=== PATIENT | male | born 1950 | race Two or more races ===

== ENCOUNTER → 2025-02-17 | Outpatient (CLI) | payer OTHER, SELFPAY ==
[2025-02-17 08:48] LABS: Glucose Estimated Average 128 mg/dL (80-131); Hemoglobin A1C 6.1 % Hgb (4.8-6.0)
[2025-02-17 08:54] LABS: Alanine Aminotransferase 16 U/L (10-49); Albumin, Serum 4.3 gm/dL (3.4-4.8); Albumin/Globulin Ratio 1.8 (1.2-2.2); Alkaline Phosphatase 68 U/L (46-116); Anion Gap 9 (7-16); Aspartate Amino Transferase 16 U/L (0-34); BUN/Creatinine Ratio 11 Ratio (12-20); Bilirubin,Total 0.7 mg/dL (0.3-1.2); Blood Urea Nitrogen 16 mg/dL (9-23); Calcium 9.2 mg/dL (8.3-10.6); Calcium (Corrected) 9.2 mg/dL (8.5-10.1); Carbon Dioxide 26.3 mMol/L (20.0-31.0); Cardiac Risk Estimate 6.1 RATIO (4.0-6.7); Chloride 107 mMol/L (98-107); Cholesterol 176 mg/dL (132-200); Creatinine (Component) 1.5 mg/dL (0.6-1.3); Free T4 (Free Thyroxine) 1.11 ng/dL (0.89-1.76); Globulin 2.4 gm/dL (2.3-3.5); Glucose 123 mg/dL (74-106); HDL Cholesterol 29 mg/dL (40-60); LDL Cholesterol,Calculated 87 mg/dL (0-130); Osmolality,Calculated 285 (275-295); Potassium 4.1 mMol/L (3.4-5.1); Sodium 142 mMol/L (136-145); Thyroid Stimulating Hormone 2.32 uIU/mL (0.55-4.78); Total Protein 6.7 gm/dL (5.7-8.2); Triglycerides 301 mg/dL (30-150); eGFR 48 See Note
[2025-02-17 08:56] LABS: Basophils # (Auto) 0.1 Thou/mm3 (0.0-0.2); Basophils % (Auto) 1 % (0-2.5); Eosinophils # (Auto) 0.2 Thou/mm3 (0.0-0.5); Eosinophils % (Auto) 4 % (0-10); Hematocrit 43.5 % (41.0-53.0); Hemoglobin 15.1 g/dL (13.5-16.0); Immature Granulocytes % (Auto) 0 % (0-0); Immature Granulocytes Auto 0.01 Thou/mm3 (0.00-0.00); Lymphocytes # (Auto) 1.9 Thou/mm3 (1.0-4.8); Lymphocytes % (Auto) 33 % (10-50); Mean Corpuscular HGB Conc 34.7 g/dl (31.0-37.0); Mean Corpuscular Hemoglobin 29.2 pg (25.0-35.0); Mean Corpuscular Volume 84 fL (80-100); Monocytes # (Auto) 0.4 Thou/mm3 (0.0-0.8); Monocytes % (Auto) 7 % (0-12); Neutrophils # (Auto) 3.2 Thou/mm3 (1.8-7.7); Neutrophils % (Auto) 55 % (37-80); Nucleated Red Blood Cell % 0 /100 WBC (0); Platelet Count 188 Thou/mm3 (140-440); RDW Standard Deviation 38.5 fL (35.1-43.9); Red Blood Count 5.17 Miln/mm3 (4.50-5.90); White Blood Count 5.8 Thou/mm3 (3.8-10.6)
[2025-02-17 09:07] LABS: Vitamin D 25 Hydroxy Total 23.3 ng/mL (7.3-40.2)
== END | disposition home or self-care (01) ==
PROVIDERS: PCP Internal Medicine; Referring Provider Internal Medicine; Visit Provider Internal Medicine
DX: Z00.00 Encounter for general adult medical examination without abnormal findings (principal); E55.9 Vitamin D deficiency, unspecified
CPT/HCPCS: 36415; 80053; 80061; 82306; 83036; 84439; 84443; 85025

== ENCOUNTER → 2025-03-27 | Outpatient (CLI) | payer OTHER, SELFPAY ==
--- NOTE | 2025-03-27 14:45 | XR_ITS ---
Examination: Retroperitoneal ultrasound, complete Technique: Multiple high resolution grayscale images of the retroperitoneum obtained, including kidneys and bladder. 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
== END | disposition home or self-care (01) ==
PROVIDERS: PCP Internal Medicine; Referring Provider Internal Medicine; Visit Provider Internal Medicine
DX: N32.89 Other specified disorders of bladder (principal); N28.1 Cyst of kidney, acquired; N28.89 Other specified disorders of kidney and ureter
CPT/HCPCS: 76770

== ENCOUNTER → 2025-06-23 | Outpatient (CLI) | payer OTHER, SELFPAY ==
--- NOTE | 2025-06-23 13:00 | XR_ITS ---
Examination: CT abdomen and pelvis without contrast. Coronal 3-D reconstructions. Sagittal 2-D reconstructions. Date and time of exam:June 23, 2025 1336 hours, comparison September 22, 2021 INDICATIONS: Diagnosis malignant neoplasm of the bladder, diagnosis March 27, 2025, abdominal bloating one year CTDI: vol (mGy): 8.65 DLP: (mGycm):5 30 Technique: Axial images of the abdomen have been obtained, 3 mm slice thickness Intravenous contrast material has not been administered. Low dose protocols were performed. One or more of the following dose reduction techniques were used; automated exposure control, adjustment of the mA and/or KV according to patient size, use of iterative reconstruction technique. Findings: No focal liver or splenic lesions Contracted gallbladder No pancreatic or adrenal mass. No renal or ureteral calculi, no hydronephrosis Aorta normal size No bowel obstruction Normal appendix Scattered colonic diverticulosis Large mass occupying most of the bladder, at least 6.1 x 6.0 cm Transverse prostate dimension 4.8 cm Fat-containing inguinal hernias Severe osteopenia IMPRESSION: Large mass occupying most of the bladder, 6.1 x 6.0 cm
== END | disposition home or self-care (01) ==
LOC: CCTX 13:12
PROVIDERS: PCP Internal Medicine; Referring Provider Internal Medicine; Visit Provider Internal Medicine
DX: N32.89 Other specified disorders of bladder (principal); C67.9 Malignant neoplasm of bladder, unspecified
CPT/HCPCS: 74176

== ENCOUNTER 2025-09-08 06:35 | Day surgery (SDC) | payer OTHER, SELFPAY ==
--- NOTE | 2025-09-07 07:00 | EKG_ITS ---
[facility] Test Date: 2025-09-07 Pat Name: JAQUAN YARBROUGH Department: Room: - Gender: Male Paver Layer: [facility] : 1950 Requested By: Omar Rey Order Number: [id number] Reading MD: Omar Rey Measurements Intervals [place] Rate: 61 P: 62 NC: 135 QRS: 29 QRSD: 94 T: 55 QT: 411 QTc: 414 Interpretive Statements SINUS RHYTHM No previous ECG available for comparison /store/S0/[id number]/ecg/[id number].pdf
[2025-09-07 07:01] VITALS: BMI 33.3
[2025-09-07 07:37] LABS: Collection Type, Urine Clean Catch
[2025-09-07 07:50] LABS: Basophils # (Auto) 0.0 Thou/mm3 (0.0-0.2); Basophils % (Auto) 1 % (0-2.5); Eosinophils # (Auto) 0.2 Thou/mm3 (0.0-0.5); Eosinophils % (Auto) 3 % (0-10); Hematocrit 47.4 % (41.0-53.0); Hemoglobin 15.5 g/dL (13.5-16.0); Immature Granulocytes Auto 0.02 Thou/mm3 (0.00-0.00); Lymphocytes # (Auto) 1.7 Thou/mm3 (1.0-4.8); Lymphocytes % (Auto) 30 % (10-50); Mean Corpuscular HGB Conc 32.7 g/dl (31.0-37.0); Mean Corpuscular Hemoglobin 28.9 pg (25.0-35.0); Mean Corpuscular Volume 88 fL (80-100); Monocytes # (Auto) 0.5 Thou/mm3 (0.0-0.8); Monocytes % (Auto) 8 % (0-12); Neutrophils # (Auto) 3.4 Thou/mm3 (1.8-7.7); Neutrophils % (Auto) 58 % (37-80); Nucleated Red Blood Cell # 0.00 Thou/mm3 (0.00-0.00); Nucleated Red Blood Cell % 0 /100 WBC (0); Platelet Count 222 Thou/mm3 (140-440); RDW Standard Deviation 42.5 fL (35.1-43.9); Red Blood Count 5.36 Miln/mm3 (4.50-5.90); White Blood Count 5.8 Thou/mm3 (3.8-10.6)
[2025-09-07 08:07] LABS: Bilirubin,Urine Negative (Negative); Blood,Urine Negative (Negative); Clarity,Urine Clear (Clear/Hazy); Color,Urine Yellow (Lt Yel-Yel); Glucose, Urine Negative (Negative); Hyaline Casts,Urine < 1 /hpf (0-1); Ketones,Urine Negative (Negative); Leukocyte Esterase,Urine Negative (Negative); Nitrite,Urine Negative (Negative); PH,Urine 6.0 (5.0-7.0); Protein,Urine 1+ (Neg - Trace); RBC,Urine 4 /hpf (0-3); Specific Gravity,Urine 1.022 (1.001-1.035); Squamous Epithelial Cell,Urine < 1 /hpf (0-5); Urobilinogen,Urine Negative mg/dL (0.0-1.0); WBC,Urine 2 /hpf (0-5)
[2025-09-07 08:10] LABS: Alanine Aminotransferase 17 U/L (10-49); Albumin, Serum 4.8 gm/dL (3.4-4.8); Albumin/Globulin Ratio 2.1 (1.2-2.2); Alkaline Phosphatase 68 U/L (46-116); Anion Gap 10 (7-16); Aspartate Amino Transferase 17 U/L (0-34); BUN/Creatinine Ratio 10 Ratio (12-20); Bilirubin,Total 1.1 mg/dL (0.3-1.2); Blood Urea Nitrogen 15 mg/dL (9-23); Calcium 9.7 mg/dL (8.3-10.6); Calcium (Corrected) 9.7 mg/dL (8.5-10.1); Carbon Dioxide 27.7 mMol/L (20.0-31.0); Chloride 105 mMol/L (98-107); Creatinine (Component) 1.5 mg/dL (0.6-1.3); Estimated Creatinine Clearance 43.4 mL/min (>60); Globulin 2.3 gm/dL (2.3-3.5); Glucose 120 mg/dL (74-106); Osmolality,Calculated 286 (275-295); Potassium 3.9 mMol/L (3.4-5.1); Sodium 143 mMol/L (136-145); Total Protein 7.1 gm/dL (5.7-8.2); eGFR 48 See Note
[2025-09-07 08:43] LABS: Prostate Specific Antigen 6.41 ng/mL (0-4.00)
--- NOTE | 2025-09-07 10:29 | ESHP_ITS ---
RE: JAQUAN YARBROUGH : 1950 DATE OF ADMISSION: 09/07/2025 The patient is a 74 years old gentleman. He is [place] speaking. He has been having some blood in his urine. CT scan of the abdomen and pelvis revealed mass in his bladder. It is a large mass. Cystoscopy was done in the office, which revealed bladder stone and a large mass on the right side of the bladder. He is now scheduled to have cystoscopy, removal of the bladder stone and transurethral resection of bladder mass. On the CT scan, it revealed a large mass occupying most of the bladder at least 6 x 6 cm. The patient is a [place] speaking male. He had some surgery done by Dr. Vasquez in the past. This was done in 2003. The patient had another surgery done and had transurethral resection of bladder tumor done in the past in 2014. The patient has 3 children. He has history of hypertension, no history of diabetes. ALLERGIES: NONE KNOWN. MEDICATIONS: He takes statin medication, losartan, and doxazosin. CLINICAL EXAMINATION: HEENT: Normal. NECK: Supple. LUNGS: Clear. HEART: Sounds are normal. ABDOMEN: Soft without any organomegaly, no guarding, no rigidity. EXTREMITIES: Normal. GENITOURINARY: Phallus is normal. Testes are down in scrotum. 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 RECTAL: Revealed moderately enlarged smooth prostate. There are no nodules. IMPRESSION: Bladder stone, large bladder mass, history of previous transurethral resection of prostate by Dr. Vasquez and also possible history of right bladder tumor. The reports are not available and Dr. Vasquez has retired. Planned procedure, risks, and complications have been discussed with the patient. The patient has understood them and agreed to proceed. DT: 10:10:13 TT: 10:29:00 Ref: [id number] - TID: [id number]
--- NOTE | 2025-09-07 15:26 | SUR.PREOP ---
Pt notified to come in at 0700 tomorrow.
[2025-09-08] VITALS (9 sets, daily range): BP systolic 124–155; BP diastolic 69–82; PULSE 60–82; RESP 12–16; TEMP 36.8; O2SAT 97–100; BMI 32.5
[2025-09-08] MEDS: RINGERS LACTATED 1000 ML 1,000 ML 20 ML IV (07:20)
--- NOTE | 2025-09-08 07:30 | CHAP ---
Prayed with patient before procedure.
--- NOTE | 2025-09-08 10:48 | SUR.PHASEI ---
1032: Pt received in [facility] via gurney. Report from Jerad HAYES and Angela Cruz. Pt groggy. Easily aroused with eye opening. Resp even, unlabored. VS stable. Leiva to gravity with clear dark red drainage. No c/o pain, discomfort.
--- NOTE | 2025-09-08 11:14 | SUR.PHASEI ---
1052: Pt has been resting with no complaints voiced. Resp even, unlabored. VS stable. Leiva continues to drain clear, dark red drainage. Denies pain. Dr. Rey in at bedside. Performed rectal exam. Pt tolerated procedure with no complaints voiced.
--- NOTE | 2025-09-08 15:00 | SUR.PHASEII ---
1130: Pt more awake, alert. VS stable. Ramires continues to drain clear red urine. Denies pain. Pt sitting up tolerating po fluids with no difficulty swallowing and no n/v. Leg bag applied. Teaching provided regarding care of ramires and bag. Original ramires bag drained of 200cc clear red urine. at bedside. 1215: Pt fully awake, oriented x3. VS stable. Denies pain. Leg bag contains small amount clear red urine. Pt dressed and assisted to transport chair. Amblation steady. Ice Cream Chef Lorraine in to interpret for pt and . Both stated understanding of discharge instructions. Pt and also instructed to pickling machine operator his prescription at his pharmacy. Pt discharged from [facility] in stable condition.
--- NOTE | 2025-09-08 15:15 | ESOP_ITS ---
RE: JAQUAN YARBROUGH : 1950 DATE OF OPERATION: 09/08/2025 PREOPERATIVE DIAGNOSES: History of gross hematuria several months ago. History of bladder stone. Possible bladder tumors. POSTOPERATIVE DIAGNOSES: History of gross hematuria and bladder stone. No evidence of bladder tumors at this time. PROCEDURES PERFORMED: Cystoscopy and cystolitholapaxy for the bladder stone. ANESTHESIA: General by Dr. Miller. INDICATION: Patient is a 74-year-old male with history of gross hematuria which happened more than a year ago. Patient has not been bleeding. He had a history of transurethral resection of prostate done by Dr. Samson many years ago. Patient had a cystoscopy which revealed a bladder stone. CT scan of the abdomen and pelvis revealed a possible tumor in the bladder. Patient is now scheduled to have cystoscopy, cystolitholapaxy for the bladder stone, and possible transurethral resection of bladder tumor if found to have one. Planned procedure, risks, and complications have been discussed with the patient. Patient understood them and agreed to proceed. DESCRIPTION OF PROCEDURE: After the patient was brought to the operating table under adequate general anesthesia and dorsal lithotomy position, parts were prepped and draped in the usual fashion. Cystoscopy was then carried out which revealed a somewhat narrow urethra which was dilated. 22-[place] cystoscope was then introduced into the bladder which revealed that urethra is open. Prostatic urethra revealed moderately enlarged prostate. I looked inside the bladder. There is a stone in the bladder about 2 cm size. I could not see any tumor. We took some pictures. The stone was crushed with a stone concrete crusher loader operator and was removed. Again looking in the bladder, there was no tumor found. So I removed the scope and put a 22-[place] Leiva catheter into the bladder and was left indwelling. Catheter was then connected to a drainage bag. Patient was then transferred to the recovery room in a satisfactory condition, having tolerated the entire procedure well. DT: 10:52:17 TT: 15:14:00 Ref: [id number] - TID: [id number]
== END 2025-09-08 12:15 | disposition home or self-care (01) ==
PROVIDERS: Anesthesiology; PCP Internal Medicine; Referring Provider Surgery; Visit Provider Surgery
PROC: 0TJB8ZZ Inspection of Bladder, Via Natural or Artificial Opening Endoscopic (ICD-10-PCS; CPT 52000; 2025-09-08 09:00)
DX: N21.0 Calculus in bladder (principal); Z01.810 Encounter for preprocedural cardiovascular examination; N40.0 Benign prostatic hyperplasia without lower urinary tract symptoms; I10 Essential (primary) hypertension
CPT/HCPCS: 52317; 36415; 80053; 81001; 82365; 84153; 85025; 87086; 93005; A4217; A4649; J0131; J1100; J1956; J2405; J2704; J3010; J3490; J7120